=== PATIENT | female | born 1945 | race Caucasian/White ===

== ENCOUNTER 2019-05-23 13:53 | Outpatient (CLI) | payer MEDICARE, BC ==
[~2019-05-23 13:53] MED LIST: AMLO1CAP10 PO; ASPI-1053 PO; CALCIUM/MG/ZINC PO; CHOL200013; CITRACAL PO; GABA300C PO; LEVO50TA PO; OMEG-166 PO; RED YEAST RICE; ROPI0.5T4 PO; TRAM50TA2 PO; VITAMIN B12 PO; [UNRECOGNIZED DRUG - OTHER] PO
[2019-05-25 07:10] LABS: CANCER ANTIGEN 125 10.2 U/mL (0.0-38.1)
== END 2019-05-23 23:59 | disposition home or self-care (01) ==
LOC: LAB 13:53
PROVIDERS: ATTEND Obstetrics & Gynecology
DX: D39.11 Neoplasm of uncertain behavior of right ovary (principal); R19.00 Intra-abdominal and pelvic swelling, mass and lump, unspecified site; Z00.00 Encounter for general adult medical examination without abnormal findings; R10.2 Pelvic and perineal pain
CPT/HCPCS: 36415; 82378; 86304